=== PATIENT | female | born 1950 | race Caucasian/White ===

== ENCOUNTER 2020-03-02 17:45 | Emergency (ER) | payer OTHER, BC ==
--- OUTSIDE RECORDS SUMMARY | 2020-03-02 17:47 | XMS REPORT ---
:1950 Author Organization [facility] t Address [address] [place] [address] Care Team Providers Name Role Phone Unavailable Unavailable Unavailable Payers Payer Name Policy Type Policy Number Effective Date Expiration D ate Problems This patient has no known problems. Allergies, Adverse Reactions, Alerts Allergy Allergy Status Severity Reaction(s) Onset Inactive Treating C omments Name Type Date Date Clinician No Known DA Active U 2019-07 Allergies - 00:00:0 0 No Known DA Active U 2019-02 Allergies -17 00:00:0 0 No Known DA Active U 2019-01 Allergies - 00:00:0 0 No Known DA Active U 2017-10 Allergies -07 00:00:0 0 Medications This patient has no known medications. Results Test Description Test Time Test Comments Text Results Atomic Results Result Comments - XR FLUORO FOR SPINE INJ 2019-08-07 10:55:00 Patient Name: CHRISTINA HUNT Unit No: [id number] EXAMS: CPT CODE: [id number] XR FLUORO FOR SPIN E INJ 96653 LUMBAR FACET INJECTION REFERRING PHYSICIAN: PREOPERATIVE DIAGNOSIS: 1. Lumbar facet arthropathy POSTOPERATIVE DIAGNOSIS: 1. Bilateral L4-5, bilateral L5 -S1 lumbar facet spondylosis wit hout radiculopathy PROCEDURES PERFORMED Fluoroscopically guided need le localization of the bilatera l L4-5, bilateral L5-S1 lumbar facets with injection of local anes thetic and steroids 2. Arthrograms of the bilateral L4-5, bilateral L5-S1 lumbar facet s FINDINGS: 1. Concordant provocation bilat eral L4-5 facet for back pain, await local anesthetic respo nse ANTIBIOTIC: Cefazo antonia ESTIMATED BLOOD LOS S: Minimal ANESTH ESIA: (TIVA) Total intravenous an esthetic (patient intolerant to sedatives and hypnotics). COMPLICATIONS: None DETAILS OF PROCEDURE: After obtaining stable vital signs , informed consent and I V access, with no known contraindications to proceed ing, the patient was taken [facility] fluoroscopy suite and placed in a prone position with al l extremities padded and appro priate monitors placed. A meri rile prep and drape was performed over the lumbosacral spine. Using fluoroscopic visualiza tion at each level the insertion sit e was marked for a paravertebra l approach to the facets. Usin g standard technique, a 25 gauge needle was advanced to the f acets. In AP view, the needle was advanced into the facets. Th en, 1 ml of Isovue-300 contrast was injected to produce the arth rograms. AP, lateral and obliq ue views were documented. No paresthe cielo were elicited with nee dle insertion or injection and t here were no signs of intravascul ar or intrathecal uptake. Then, 1 ml of 0.75% bupivacaine with 1 m l of 4% lidocaine and 10 mg of triamcinolone was injected incrementally with malina quent negative aspirations. There were no signs of intravascular or intrathecal uptake. Each sub sequent level was done using [facility] same technique and medications. [facility] patient's vital signs remained stable. The patient was take n to the PACU in good condition. [facility] NAME: CHRISTINA HUNT [address] [facility] PHYS: DOCUD - Doctor,[place] MD [place], [place] [address] : 1950 AGE: 68 SEX: F [phone] LOC: [place] PHONE #: [phone] E XAM DATE: 08/07/2019 STATUS: REG [facility] FAX #: [phone] RAD #: D/C DT PAGE 1 Signed Report (CONTINUED) Patient Name: CHRISTINA HUNT Unit No: [id number] EXAMS: CPT CODE: [id number] X R FLUORO FOR SPINE INJ 96675 <Contin ued> at 1055 Reporte d and signed by: Osmany Nuñez M.D. CC: Technologist: Rosamaria Castellanos(R) Transcribed D/ (8992) GalaUVD [facility] NAME: CHRISTINA HUNT [address] [facility] PHYS: Osmany Kelley MD [place] [address] : 1950 AGE: 68 SEX: F 5 LOC: [place] PHONE #: EXAM DATE: 08/07 STATUS: REG [facility] [place] FAX #: [phone] R AD #: D/C DT PAGE 2 Sign ed Report Patient Name: LUCIAN HUNT Unit No: [id number] EXAMS: CPT CODE: [id number] XR FLUORO FOR SPIN E INJ 35322 <Continued> Orig Print D/T: S: 08/07/2019 (2851) [facility] NAME: CHRISTINA HUNTY [address] [facility] PHYS: Osmany Kelley MD [place] [address] : 1950 AGE: 68 SEX: F LOC: [place] PHONE #: [phone] EXAM DATE: 08/07/2019 STA TUS: REG SD FAX #: [phone] RAD #: D/C DT PAGE 3 Signed Report - XR FLUORO FOR SPINE INJ 2019-04-11 07:57:00 Patient Name: CHRISTINA HUNT Unit No: [id number] EXAMS: CPT CODE: [id number] XR FLUORO FOR SPIN E INJ 49458 LUMBAR TRANSFORAMINAL IN JECTION AND LUMBAR FACET BLOCK REFERRING PHYSICIAN: PREOPERATIVE DIAGNOSIS: 1. Degenerative Lumbar Di sc Disease. 2. L umbar Facet Arthropathy POSTOPERATIVE DIAGNOSIS: Lef t L4 radiculopathy and bilateral lumbar facet arthropathy PROCEDURES PERFORMED Fluoroscopically guided need le localization of the left L4, left L5, left S1 with transforaminal epidural ster oid injections 2. Transforaminal epidurogram/epidurograms at left L4, left L5, left S1. 3. Fluoroscopic guided injections of the bilateral L4-5, bilateral L5-S1 intra-articular facets. 4. Arthrograms of the BILA TERAL L4-5, bilateral L5-S1 lumbar facets FINDINGS: conco rdant provocation left L4 nerve ro ot for hip pain, concordant provocation bilateral L5-S1 facet for back pain 100% relief ANTIBIOTIC: Cefazolin ESTIMATED BLOOD LOSS: Mini mal ANESTHESIA: (TIVA) Total intravenous anesthetic (alyssa ent intolerant to sedative s and hypnotics) COMPLICATIONS: None DETAILS OF PROCEDURE: After obtaining stable vital signs , informed consent and I V access, with no known contraindications to proceed ing, the patient was taken to t fluoroscopy suite and placed in a prone position with al l extremities padded and appro priate monitors placed. A meri rile prep and drape was performed over the lumbosacral spine. Using fluoroscopic visualiza tion at each level the insertion sit e was marked for a paravertebra l approach to the foramen. Usi ng standard technique, a 25 gauge needle was advanced to the b ase of the pedicle. In AP vie w, final positioning was obtained out side the 6 o clock position on the pedicle. Then, 1 ml of Isovu e-300 contrast was injected to produce the epidurograms. No paresthesias were elicited with needle insertion or inj ection and there were no signs of intravascular or intrathecal uptake. Then, with 1 ml of 4% lidocaine and 10 mg of triam cinolone was injected incrementally w ith frequent negative aspiratio ns. There were no signs of intra vascular or intrathecal uptake. The patient's vital signs remain ed stable. [facility] NAME: CHRISTINA HUNT [address] [facility] PHYS: DOCUD - Doctor,Osmany ochoa MD [place], [place] [address] : 1950 AGE: 68 SEX: F LOC: [place] PHONE #: [phone] EXAM DATE: 04/10/2019 STA TUS: DEP SD FAX #: [phone] RAD #: D/C DT PAGE 1 Signed Report (CONTINUED) Patient Name: CHRISTINA HUNT Unit No: [id number] EXAMS: CPT CODE: [id number] X R FLUORO FOR SPINE INJ 68031 <Contin ued> The patient was p laced in a prone position and the lum bosacral spine was prepped and draped in sterile fashion. Using s tandard technique, using fluor oscopic guidance, a 27-gauge needle was advanced into the face t joint and 2 mL of Isovue-300 contr ast was injected to produce an arthrogram. Please see resu lts of the arthrogram above. Then 2 mL was of 0.75 percent Marcai ne and 2 mL of 4% lidocaine and 20 mg of triamcinolone was injected into the joint. Areas were cleaned o f the prep and the patient was taken to the recovery room. at 0756 Reported and signed by: Osmany Nuñez M.D. CC: Technologist : Rosamaria Castellanos(R) Transcribed D/T : 04/11/2019 (0753) [facility]ala[facility] NAME : CHRISTINA HUNT [address] [facility] [address] PHYS: Osmany Kelley MD [place], [place] [address] : 1950 AGE: 68 SEX: F LOC: [place] PHONE #: [phone] EXAM DATE: 04/10/2019 STA TUS: HERMINIO [facility] [place] [facility] FAX #: [phone] RAD #: D/C DT PAGE 2 Signed Report Patient Name: CHRISTINA HUNT Unit No: [id number] EXAMS: CPT CODE: [id number] X R FLUORO FOR SPINE INJ 57858 <Contin ued> Orig Print D/T: S: 9 (08) [facility] NAME: CHRISTINA HUNT [address] [facility] [address] PHYS: Osmany Kelley MD [place], [place] [address] : 1950 AGE: 68 SEX: F 9 LOC: [place] PHONE #: EXAM DATE: 04/10 STATUS: [facility] FAX #: [phone] R AD #: D/C DT PAGE 3 Sign ed Report - XR FLUORO FOR SPINE INJ 2019-02-22 12:14:00 Patient Name: CHRISTINA HUNT Unit No: [id number] EXAMS: CPT CODE: [id number] XR FLUORO FOR SPIN E INJ 93069 LUMBAR FACET INJECTION REFERRING PHYSICIAN: PREOPERATIVE DIAGNOSIS: 1. Lumbar facet arthropathy POSTOPERATIVE DIAGNOSIS: 1. Bilateral L4-5, bilateral L5 -S1 lumbar facet arthropathy PROCEDURES PERFORMED Fluoroscopically guided need le localization of the bilatera l L4-5, bilateral L5-S1 lumbar facets with injection of local anes thetic and steroids 2. Arthrograms of the bilateral L4-5, bilateral L5-S1 lumbar facet s FINDINGS: 1. Provocation bilateral L4-5 f acet wait on anesthetic response ANTIBIOTIC: Cefazolin ESTIMATED BLOOD LOSS: Mi nimal ANESTHESIA: (TIVA ) Total intravenous anesthetic (alyssa ent intolerant to sedative s and hypnotics). COMPLICATIONS: None DETAILS OF PROCEDURE: After obtaining stable vital signs , informed consent and I V access, with no known contraindications to proceed ing, the patient was taken to [facility] fluoroscopy suite and placed in a prone position with al l extremities padded and appro priate monitors placed. A meri rile prep and drape was performed over the lumbosacral spine. Using fluoroscopic visualiza tion at each level the insertion sit e was marked for a paravertebra l approach to the facets. Usin g standard technique, a 25 gauge needle was advanced to the f acets. In AP view, the needle was advanced into the facets. Th en, 1 ml of Isovue-300 contrast was injected to produce the arth rograms. AP, lateral and obliq ue views were documented. No paresthe cielo were elicited with nee dle insertion or injection and t here were no signs of intravascul ar or intrathecal uptake. Then, 1 ml of 0.75% bupivacaine with 1 m l of 4% lidocaine and 10 mg of triamcinolone was injected incrementally with malina quent negative aspirations. There were no signs of intravascular or intrathecal uptake. Each sub sequent level was done using [facility] same technique and medications. [facility] patient's vital signs remained stable. The patient was take n to the PACU in good condition. at 1214 Reporte d and signed by: Osmany Nuñez M.D. [facility] NAME: CHRISTINA HUNT [address] [facility] PHYS: Osmany Kelley MD [place] [address] : 1950 AGE: 68 SEX: F 2 LOC: [place] PHONE #: EXAM DATE: 02/22 STATUS: REG SDC FAX #: [phone] R AD #: D/C DT PAGE 1 Sign ed Report (CONTINUED) Patient Name: CHRISTINA HUNT Unit No: [id number] EXAMS: CPT CODE: [id number] X R FLUORO FOR SPINE INJ 74953 <Contin ued> CC: Technologist: ALOK DALEY RT(R) Transcribed D/ (5374) [facility]ala[facility] NAME: CHRISTINA HUNT [address] [facility] PHYS: Osmany Kelley MD [place] [address] : 1950 AGE: 68 SEX: F 2 LOC: [place] PHONE #: EXAM DATE: 02/22 STATUS: REG iodine FAX #: [phone] R AD #: D/C DT PAGE 2 Sign ed Report Patient Name: LUCIAN HUNT Unit No: [id number] EXAMS: CPT CODE: [id number] XR FLUORO FOR SPIN E INJ 11819 <Continued> Orig Print D/T: S: 02/22/2019 (1217) [facility] NAME: RUFINADAVID RuvalcabaYN [address] [facility] PHYS: Osmany Kelley MD [place] [address] : 1950 AGE: 68 SEX: F LOC: [place] PHONE #: [phone] EXAM DATE: 02/22/2019 STA TUS: REG SDC FAX #: [phone] RAD #: D/C DT PAGE 3 Signed Report - XR FLUORO FOR SPINE INJ 2019-01-25 15:40:00 Patient Name: CHRISTINA HUNT Unit No: [id number] EXAMS: CPT CODE: [id number] XR FLUORO FOR SPIN E INJ 13714 LUMBAR TRANSFORAMINAL IN JECTION REFERRING PHYSI TIANNA: PREOPERATIVE DIAG NOSIS: Degenerative Lumbar Disc Dis ease. POSTOPERATIVE CHERYL GNOSIS: Lumbar radiculopathy PROCEDURES PERFORMED 1 . Fluoroscopically guided need le localization of the bilatera l L4, bilateral L5 spinal nerve /nerves with transforaminal epidural steroid injection/injections. 2. Transforaminal epidurogram/epidurograms at bilateral L4, bilatera l L5. FINDINGS: Poor fi lling bilateral L4, bilateral L5. Concordant provocation bilateral L5 back. Pain relief-100%. ANTIBIOTIC: Cefazolin ESTIMATED BLOOD LOSS: Minima l ANESTHESIA: (TIVA )To bob intravenous anesthetic (alyssa ent intolerant to sedative s and hypnotics) COMPLICATIONS: None DETAILS OF PROCEDURE: After obtaining stable vital signs , informed consent and I V access, with no known contraindications to proceed ing, the patient was taken [facility] fluoroscopy suite and placed in a prone position with al l extremities padded and appro priate monitors placed. A meri rile prep and drape was performed over the lumbosacral spine. Using fluoroscopic visualiza tion at each level the insertion sit e was marked for a paravertebra l approach to the foramen. Usi ng standard technique, a 25 gauge needle was advanced to the b ase of the pedicle. In AP vie w, final positioning was obtained out side the 6 on the clock positio n on the pedicle. Then, 1 ml of Isovu e-300 contrast was injected to produce the epidurograms. No paresthesias were elicited with needle insertion or inj ection and there were no signs of intravascular or intrathecal uptake. Then, with 1 ml of 4% lido stephane and 10 mg of triamcinolon e was injected incrementally with frequent negative aspirations. There were no signs of intravascul ar or intrathecal uptake. Each subsequent level was done us ing the same technique and medications. The patient's v ital signs remained stable. The patient was taken to the PAC U in good condition. at 1540 Reported and signed by: Osmany Nuñez M.D. [facility] NAME: CHRISTINA HUNT [address] [facility] [address] PHYS: Osmany Kelley MD [place] [address] : 1950 AGE: 68 SEX: F 3 LOC: [place] PHONE #: EXAM DATE: 01/25 STATUS: REG [facility]C FAX #: [phone] R AD #: D/C DT PAGE 1 Sign ed Report (CONTINUED) Patient Name: CHRISTINA HUNT Unit No: [id number] EXAMS: CPT CODE: [id number] X R FLUORO FOR SPINE INJ 50031 <Contin ued> CC: Technologist: Rosamaria Castellanos(R) Transcribed D/ 19 (9630) [email or web address] [facility] NAME: MILVIA HUNT [address] PHYS: Osmany Kelley MD [place] [address] D OB: 1950 AGE: 68 SEX: F LOC: [place] PHONE #: [phone] EXAM DATE: 01/25/2019 STATUS : REG SD FAX #: [phone] RAD #: D/C DT PAGE 2 Signed Report Patient Name: CHRISTINA HUNT Unit No: [id number] EXAMS: CPT CODE: [id number] X R FLUORO FOR SPINE INJ 99330 <Contin ued> Orig Print D/T: S: 9 (6013) [facility] NAME: CHRISTINA HUNT [address] [facility] [address] PHYS: Osmany Kelley MD [place] [address] : 1950 AGE: 68 SEX: F 3 LOC: [place] PHONE #: [phone] EXAM DATE: 01/25 STATUS: REG SD FAX #: [phone] R AD #: D/C DT PAGE 3 Sign ed Report
[2020-03-02] MEDS ORDERED: TETRACAINE HCL 0.5% 4ML OPTH ONE (18:04)
[2020-03-02] MEDS ORDERED: FLUORESCEIN SODIUM 1 MG/WRAP ONE (18:04)
[2020-03-02] MEDS ORDERED: DIPHENHYDRAMINE 25 MG TAB/CAP ONE (18:19)
[2020-03-02] MEDS ORDERED: FAMOTIDINE 20 MG TAB ONE (18:19)
[2020-03-02] MEDS ORDERED: TOBRAMYCIN SULF 0.3% OPTH OINT ONE (18:20)
--- NOTE | 2020-03-02 18:30 | ER ---
Nurse's Notes [facility] Name: Trina Kingsley Age: 69 yrs Sex: Female : 1950 Arrival Date: 03/02/2020 Time: 17:47 Bed 13 Private MD: Diagnosis: Insect bite (nonvenomous) of left eyelid and periocular area;Allergic contact dermatitis Presentation: 03/02 17:56 Chief complaint: Patient states: [place] like she had something in her left eye today so ll1 she tried to rinse it out. Then the upper eyelid started to swell. No fever. No known trauma. Coronavirus screen: Proceed with normal triage. Patient denies a cough. Patient denies shortness of breath or difficulty breathing. Patient denies measured and/or subjective temperature greater than 100.4F prior to today's visit. Patient denies travel on a cruise ship or to a country the [facility] currently lists as an affected area. Patient denies contact with known and/or suspected case of COVID-19. Ebola Screen: Patient denies travel to an Ebola-affected area in the 21 days before illness onset. Initial Sepsis Screen: Does the patient meet any 2 criteria? No. Patient's initial sepsis screen is negative. Does the patient have a suspected source of infection? No. Patient's initial sepsis screen is negative. Risk Assessment: Do you want to hurt yourself or someone else? Patient reports no desire to harm self or others. Onset of symptoms was March 02, 2020. 17:56 Method Of Arrival: Ambulatory ll1 17:56 Acuity: TIMOTEO 4 ll1 Triage Assessment: 18:03 General: Appears in no apparent distress. Behavior is calm, cooperative, appropriate vc for age. Pain: Complains of pain in left eye. Historical: - Allergies: 17:58 No Known Allergies; ll1 - PMHx: 17:58 Hypertension; ll1 - Immunization history:: Adult Immunizations up to date. - Social history:: Smoking status: Patient denies any tobacco usage or history of. Patient uses alcohol, only on a social basis. Patient/guardian denies using street drugs. - Family history:: not pertinent. Screenin:02 Abuse screen: Denies threats or abuse. Nutritional screening: No deficits noted. vc Tuberculosis screening: No symptoms or risk factors identified. Fall Risk None identified. Assessment: 18:05 General: Appears in no apparent distress. uncomfortable, Behavior is calm, cooperative, vc appropriate for age. Pain: Complains of pain in left eye. Neuro: Level of Consciousness is awake, alert, obeys commands, Oriented to person, place, time, situation. Cardiovascular: Patient's skin is warm and dry. Respiratory: Airway is patent Respiratory effort is even, unlabored, Respiratory pattern is regular, symmetrical. GI: No signs and/or symptoms were reported involving the gastrointestinal system. : No signs and/or symptoms were reported regarding the genitourinary system. EENT: Reports pain in left eye. Vital Signs: 17:56 BP 166 / 85; Pulse 80; Resp 17; Temp 99.0; Pulse Ox 98% ; Pain 2/10; ll1 ED Course: 17:47 Patient arrived in ED. mr 17:47 Abel Bojorquez MD is Attending Physician. neftali 17:53 Shira Ovalle, RN is Primary Nurse. vc 17:57 Triage completed. ll1 17:58 Arm band placed on Patient placed in an exam room, on a stretcher. ll1 18:04 Patient has correct armband on for positive identification. Bed in low position. Call vc light in reach. Pulse ox on. NIBP on. 18:04 Assist provider with eye exam of left eye. using fluorescein stain, Performed by Abel Bojorquez MD Patient tolerated well. 18:28 Clint Gomes MD is Referral Physician. neftali 18:38 Patient did not have IV access during this emergency room visit. vc Administered Medications: 18:02 Drug: Tetracaine Drops 0.5 % 1 drops Route: Ophthalmic; Site: left eye; vc 18:16 Drug: Tobramycin Ointment (0.3 %) 1 application Route: Ophthalmic; Site: left eye; vc 18:16 Drug: Pepcid 20 mg Route: PO; vc 18:30 Follow up: Response: No adverse reaction vc 18:17 Drug: Benadryl 50 mg Route: PO; vc 18:30 Follow up: Response: No adverse reaction vc 18:22 CANCELLED (Duplicate Order): Benadryl 50 mg PO once vc 18:22 CANCELLED (Duplicate Order): Pepcid 20 mg PO once vc 18:22 CANCELLED (Duplicate Order): Tobramycin Ointment (0.3 %) 0.5 inches Ophthalmic once; left eye Outcome: 18:29 Discharge ordered by . neftali 18:37 Discharged to home ambulatory. 18:37 Condition: good 18:37 Discharge instructions given to patient, Instructed on discharge instructions, follow up and referral plans. medication usage, Demonstrated understanding of instructions, follow-up care, medications, Prescriptions given X 4. 18:39 Patient left the ED. Signatures: Abel Bojorquez MD MD cha Rivera, Mary mr Shira Ovalle RN RN Viridiana Prabhakar RN RN ll1
--- NOTE | 2020-03-02 18:30 | EDPHYS ---
Physician Documentation [facility] Name: Trina Kingsley Age: 69 yrs Sex: Female : 1950 Arrival Date: 03/02/2020 Time: 17:47 Bed 13 Private MD: ED Physician Abel Bojorquez HPI: 03/02 18:17 This 69 yrs old Female presents to ER via Ambulatory with complaints of Eye neftali Problem. 18:17 The patient is experiencing The patient sustained Unknown. to the left eye. Onset: The neftali symptoms/episode began/occurred just prior to arrival, today. Duration: the symptoms are continuous. Aggravated by blinking, closing eye, opening eye. Associated signs and symptoms: Pertinent positives: None. Patient does not utilize any form of vision correction. Severity of symptoms: At their worst the symptoms were mild in the emergency department the symptoms are unchanged. The patient has not experienced similar symptoms in the past. Historical: - Allergies: 17:58 No Known Allergies; ll1 - PMHx: 17:58 Hypertension; ll1 - Immunization history:: Adult Immunizations up to date. - Social history:: Smoking status: Patient denies any tobacco usage or history of. Patient uses alcohol, only on a social basis. Patient/guardian denies using street drugs. - Family history:: not pertinent. ROS: 18:17 Constitutional: Negative for fever, chills, and weight loss, ENT: Negative for injury, neftali pain, and discharge, Neck: Negative for injury, pain, and swelling, Cardiovascular: Negative for chest pain, palpitations, and edema, Respiratory: Negative for shortness of breath, cough, wheezing, and pleuritic chest pain, Abdomen/GI: Negative for abdominal pain, nausea, vomiting, diarrhea, and constipation, Back: Negative for injury and pain, : Negative for injury, bleeding, discharge, and swelling, MS/Extremity: Negative for injury and deformity, Skin: Negative for injury, rash, and discoloration, Neuro: Negative for headache, weakness, numbness, tingling, and seizure, Psych: Negative for depression, anxiety, suicide ideation, homicidal ideation, and hallucinations, Allergy/Immunology: Negative for hives, rash, and allergies, Endocrine: Negative for neck swelling, polydipsia, polyuria, polyphagia, and marked weight changes, Hematologic/Lymphatic: Negative for swollen nodes, abnormal bleeding, and unusual bruising. 18:17 Eyes: Positive for pain, redness, swelling, of the left upper eyelid and left inner canthus. Exam: 18:17 Constitutional: This is a well developed, well nourished patient who is awake, alert, neftali and in no acute distress. Head/Face: Normocephalic, atraumatic. ENT: Nares patent. No nasal discharge, no septal abnormalities noted. Tympanic membranes are normal and external auditory canals are clear. Oropharynx with no redness, swelling, or masses, exudates, or evidence of obstruction, uvula midline. Mucous membranes moist. Neck: Trachea midline, no thyromegaly or masses palpated, and no cervical lymphadenopathy. Supple, full range of motion without nuchal rigidity, or vertebral point tenderness. No Meningismus. Chest/axilla: Normal chest wall appearance and motion. Nontender with no deformity. No lesions are appreciated. Cardiovascular: Regular rate and rhythm with a normal S1 and S2. No gallops, murmurs, or rubs. Normal PMI, no JVD. No pulse deficits. Respiratory: Lungs have equal breath sounds bilaterally, clear to auscultation and percussion. No rales, rhonchi or wheezes noted. No increased work of breathing, no retractions or nasal flaring. Abdomen/GI: Soft, non-tender, with normal bowel sounds. No distension or tympany. No guarding or rebound. No evidence of tenderness throughout. Back: No spinal tenderness. No costovertebral tenderness. Full range of motion. Skin: Warm, dry with normal turgor. Normal color with no rashes, no lesions, and no evidence of cellulitis. MS/ Extremity: Pulses equal, no cyanosis. Neurovascular intact. Full, normal range of motion. Neuro: Awake and alert, GCS 15, oriented to person, place, time, and situation. Cranial nerves II-XII grossly intact. Motor strength 5/5 in all extremities. Sensory grossly intact. Cerebellar exam normal. Normal gait. Psych: Awake, alert, with orientation to person, place and time. Behavior, mood, and affect are within normal limits. 18:17 Eyes: Periorbital structures: swelling, that is mild, on the left supraorbital ridge, left upper eyelid and medial canthus of left eye, Pupils: no acute changes, equal, round, and reactive to light and accomodation, Conjunctiva: normal, no acute changes, Corneas: are normal, no acute changes, abrasion, is not appreciated, foreign body, is not appreciated, a fluorescein strip employed to appreciate the findings, Sclera: no appreciated abnormality, no acute changes, Anterior chamber: normal, no acute changes, Lids and lashes: appear normal, no acute changes, Nystagmus: is not appreciated, nothing seen on inversion of lids, no foreign body. Vital Signs: 17:56 BP 166 / 85; Pulse 80; Resp 17; Temp 99.0; Pulse Ox 98% ; Pain 2/10; ll1 MDM: 17:50 Patient medically screened. [facility] [place] 18:25 Differential diagnosis: Corneal abrasion of Corneal ulcer of Foreign body in Acute neftali iritis of Acute glaucoma in Chemical conjunctivitis in. Data interpreted: campus monitor: not applicable for this patient encounter. ED course: will treat as allergic reaction, no fb, abrasion or ulcer. no evidence of a bite. 18:27 Data reviewed: vital signs, nurses notes. [facility] [place] 03/02 18:01 Order name: Fluoresene Opth strip; Complete Time: 18:01 03/02 18:31 Order name: Ice pack; Complete Time: 18:38 [facility] [place] Administered Medications: 18:02 Drug: Tetracaine Drops 0.5 % 1 drops Route: Ophthalmic; Site: left eye; vc 18:16 Drug: Tobramycin Ointment (0.3 %) 1 application Route: Ophthalmic; Site: left eye; vc 18:16 Drug: Pepcid 20 mg Route: PO; vc 18:30 Follow up: Response: No adverse reaction vc 18:17 Drug: Benadryl 50 mg Route: PO; vc 18:30 Follow up: Response: No adverse reaction vc 18:22 CANCELLED (Duplicate Order): Benadryl 50 mg PO once vc 18:22 CANCELLED (Duplicate Order): Pepcid 20 mg PO once vc 18:22 CANCELLED (Duplicate Order): Tobramycin Ointment (0.3 %) 0.5 inches Ophthalmic once; vc left eye Disposition: 03/02/20 18:29 Discharged to Home. Impression: Insect bite (nonvenomous) of left eyelid and periocular area, Allergic contact dermatitis. - Condition is Stable. - Discharge Instructions: Insect Bite, [id number], Insect Bite. - Prescriptions for Tobrex 0.3 % Ophthalmic ointment - apply 1 inch ribbon by OPHTHALMIC route 3 times per day; 3.5 gram. Benadryl 25 mg Oral Capsule - take 1 capsule by ORAL route every 6 hours As needed; 30 tablet. Keflex 500 mg Oral Capsule - take 1 capsule by ORAL route every 6 hours for 7 days; 28 capsule. Pepcid 20 mg Oral Tablet - take 1 tablet by ORAL route every 12 hours for 10 days; 20 tablet. - Medication Reconciliation Form, Thank You Letter, Antibiotic Education, Prescription Opioid Use form. - Follow up: Private Physician; When: 2 - 3 days; Reason: Recheck today's complaints, Continuance of care, Re-evaluation by your physician. Follow up: Clint Gomes MD; When: 2 - 3 days; Reason: Recheck today's complaints, Re-evaluation by your physician. - Problem is new. - Symptoms are unchanged. Signatures: Abel Bojorquez MD MD cha Calcote, Vanessa, RN RN Viridiana Giraldo RN RN ll1 Corrections: (The following items were deleted from the chart) 18:22 18:17 Benadryl 50 mg PO once ordered. [facility] 18:22 18:17 Pepcid 20 mg PO once ordered. [facility] 18:22 18:17 Tobramycin Ointment (0.3 %) 0.5 inches Ophthalmic once; left eye ordered. [facility] 18:39 18:29 03/02/2020 18:29 Discharged to Home. Impression: Insect bite (nonvenomous) of left eyelid and periocular area; Allergic contact dermatitis. Condition is Stable. Forms are Medication Reconciliation Form, Thank You Letter, Antibiotic Education, Prescription Opioid Use. Follow up: Private Physician; When: 2 - 3 days; Reason: Recheck today's complaints, Continuance of care, Re-evaluation by your physician. Follow up: Clint Gomes; When: 2 - 3 days; Reason: Recheck today's complaints, Re-evaluation by your physician. Problem is new. Symptoms are unchanged. neftali
[2020-03-02 18:45] VITALS: BP 166/85; TEMP 99; O2SAT 98
== END 2020-03-02 18:39 | disposition home or self-care (01) ==
LOC: ER 17:45
DX: L23.9 Allergic contact dermatitis, unspecified cause (principal); S00.262A Insect bite (nonvenomous) of left eyelid and periocular area, initial encounter; I10 Essential (primary) hypertension
CPT/HCPCS: 99284